=== PATIENT | female | born 1950 | race Caucasian/White ===

== ENCOUNTER 2016-10-26 09:09 | Emergency (ER) | payer OTHER ==
[2016-10-26] MEDS ORDERED: ONDANSETRON 4 MG/2 ML VIAL IVP STA ×2 (09:28→13:20)
[2016-10-26] MEDS ORDERED: HYDROmorphone 1 MG/ML SYRINGE IVP STA ×2 (09:28)
--- NOTE | 2016-10-26 09:33 | ED Physician Documentation ---
History of Present Illness - Stated complaint Stated Complaint: ABD PX/VOMITING - Chief complaint Chief Complaint: Abd Pain - Additonal information Additional information: hx from pt 65f no prior abd surgery healthy except DI and lipids visiting [place] from [place] ate a large dinner last night - lao dip, nothing bad, no raw food, sister ate same and is fine approx 4 AM developed severe upper abd pain described as "rolling waves" radiating to the back and chest and NV, no diarrhea and shaking chills Review of Systems Constitutional: reports: Chills. denies: Fever Throat: denies: Sore throat Cardiac: denies: Chest pain / pressure Respiratory: denies: Dyspnea GI: reports: Abdominal Pain, Nausea, Vomiting. denies: Diarrhea : denies: Dysuria Musculoskeletal: reports: Back pain. denies: Neck pain Neurologic: denies: Generalized weakness Endocrine: denies: Easy bruising / bleeding Immunocompromised: denies: Immunocompromised PD PAST MEDICAL HISTORY - Present Medications Home Medications: Ambulatory Orders Medication Instructions Recorded Confirmed Dicyclomine [Bentyl] 10 mg PO Q8H PRN #20 capsule 10/26/16 Ondansetron Odt [Zofran] 4 mg TL Q6H PRN #10 tablet 10/26/16 - Allergies Allergies/Adverse Reactions: Allergies Allergy/AdvReac Type Severity Reaction Status Date / Time No Known Drug Allergies Allergy Verified 10/26/16 09:19 PD ED PE NORMAL - Vitals Vital signs reviewed: Yes - General General: Alert and oriented X 3 - HEENT HEENT: Other (resltess uncomfortable) - Neck Neck: Supple, no meningeal sign - Cardiac Cardiac: RRR - Respiratory Respiratory: No respiratory distress, Clear bilaterally - Abdomen Abdomen: Normal bowel sounds, Other (TTP epigastric and RUQ with guarding no rebound, no palpable pulsatile mass, res of abd TTP but less so and non peritoneal, no inguinal hernia) - Derm Derm: Normal color - Extremities Extremities: No deformity - Neuro Neuro: Alert and oriented X 3 Results - Vitals Vitals: Vital Signs - 24 hr 10/26/16 10/26/16 10/26/16 09:17 10:05 12:50 Temperature 36.5 C Heart Rate 51 L 52 L 63 Respiratory 16 15 16 Rate Blood Pressure 204/86 H 179/85 H 174/77 H O2 Saturation 99 95 95 10/26/16 10/26/16 10/26/16 13:58 15:40 16:30 Temperature 36.3 C L Heart Rate 68 61 64 Respiratory 16 16 16 Rate Blood Pressure 191/84 H 176/84 H 180/82 H O2 Saturation 95 100 98 Oxygen O2 Source Room air - EKG (time done) 0924 Rate: Rate (enter#) (54) Rhythm: NSR [place]: Normal Intervals: Normal CA Ischemia: Normal ST segments - Labs Labs: Laboratory Tests 10/26/16 10/26/16 10/26/16 09:43 09:43 11:30 WBC 6.2 RBC 4.25 Hgb 13.5 Hct 39.0 MCV 91.8 MCH 31.8 H MCHC 34.6 RDW 12.8 Plt Count 156 MPV 6.8 L Neut # 5.0 Lymph # 0.8 L Loving # 0.3 Eos # 0.0 Baso # 0.0 Absolute Nucleated RBC 0.00 Nucleated RBCs 0.0 Sodium 135 Potassium 3.6 Chloride 101 Carbon Dioxide 23 Anion Gap 11.0 BUN 16 Creatinine 0.6 Estimated GFR (MDRD) 100 Glucose 140 H Calcium 8.8 Total Bilirubin 0.5 AST 28 ALT 32 Alkaline Phosphatase 48 Total Protein 7.1 Albumin 4.5 Globulin 2.6 Albumin/Globulin Ratio 1.7 Lipase 37 Urine Color YELLOW Urine Clarity CLEAR Urine pH 7.0 Ur Specific [place] 1.015 Urine Protein NEGATIVE Urine Glucose (UA) NEGATIVE Urine Ketones NEGATIVE Urine Occult Blood MODERATE H Urine Nitrite NEGATIVE Urine Bilirubin NEGATIVE Urine Urobilinogen 0.2 (NORMAL) Ur Leukocyte Esterase NEGATIVE Urine RBC 11-25 H Urine WBC 0-3 Ur Squamous Epith Cells RARE Squamous Urine Bacteria Rare Ur Microscopic Review INDICATED Urine Culture Comments NOT INDICATED - Rads (name of study) CT abd pelvis Radiology: See rad report (no AAA, no acute process per rad read, per my read possible GB neck stones, per rad also renal cyst and rec renal sono, will sono GB and kindey) abd sono Radiology: See rad report (nl GB no stones, nl ducts, nl aorta IVC R kidney, L kidney cyst no mass) angio abd pelvis Radiology: See rad report (no aneurysm disscetion or mesenteirc ischemia, diverticulosis no -itis, hepatic steatosis, cholelithiasis likely (I called and personally spoke to rads to explain that was my initial concern but sono was neg and so he advises that cosnidering sono, this finding is likely not gallstones and more likely abd calcifications), exophytic density for L kidney rec sono (already done), distended bladder) PD MEDICAL DECISION MAKING - ED course ED course: initial suspicion was GB disease or AAA but pt had sono, CT and angio - no gallstones, no kidney stones, no AAA or dissection, no bowel perf obst infection,, no pancreatitis etc etiology unclear but feel surgical and infectious causes have been ruled out will focus on sx control updated PMD who had called ahead about the pt and explained all to pt as well no relief with 0.5 dilaudid but dropped her sats bvriefly, good relief with ofirmev but it wore off, then good relief again with toradol and bentyl Departure - Departure Disposition: Home, Self Care Clinical Impression: Abdominal pain Condition: Good Instructions: Abdominal Pain Prescriptions: Dicyclomine [Bentyl] 10 mg PO Q8H PRN #20 capsule PRN Reason: stomach cramps Ondansetron Odt [Zofran] 4 mg TL Q6H PRN #10 tablet PRN Reason: Nausea / Vomiting Comments: All of the tests today came back fine. The urine showed no infection. There was a small amount of blood in the uirne ( but the CT did not show a kidney stone) The blood work including kidney liver and pancreas function was fine. The ultrasound did not show any gallstones The CT scan did not show any gallstones or kidney stones, no pancreatitis, no aneurysm or tear of your aorta, no bowel infection/perforation/obstruction/ ischemia, no internal bleeding or free fluid I am not sure what is causing the pain But given the extensive and reassuring workup, I do not think you need surgery or admission or antibiotics. I think it is safe for you to go home and to get any further work up as an outpatient It is very possible that over time, new or changing symptoms may develop that lead to a diagnosis not presently apparent. That is why close follow up with your PMD for a recheck is very important I would suggest you and your PMD consider a test called a HIDA scan to evaluate the gallbladder function - that test is not available tonight through the ER Recommend a low fat diet. You can try a medication called bentyl to ease the pains and a medication called zofran for the vomiting I do not recommend any strong pain killers because I do not want to mask changing or worsening symptoms Please have your PMD recheck your blood pressure as well - it was high today Discharge Date/Time: 10/26/16 16:45
[2016-10-26] MEDS ORDERED: HYDROmorphone 1 MG/ML SYRINGE ONE (09:40)
[2016-10-26] MEDS ORDERED: ONDANSETRON 4 MG/2 ML VIAL ONE ×2 (09:40→13:20)
[2016-10-26 09:49] LABS: BASOPHILS % (AUTO) 0.4 %; EOSINOPHILS % (AUTO) 0.2 %; HGB - HEMOGLOBIN 13.5 g/dL (12.0-16.0); LYMPHOCYTES # (AUTO) 0.8 10^3/uL (1.5-3.5); LYMPHOCYTES % (AUTO) 13.4 %; MEAN CORPUSCULAR HEMOGLOBIN 31.8 pg (27.0-31.0); MEAN CORPUSCULAR HGB CONC 34.6 g/dL (32.0-36.0); MEAN CORPUSCULAR VOLUME 91.8 fL (81.0-99.0); MEAN PLATELET VOLUME 6.8 fL (7.9-10.8); MONOCYTES # (AUTO) 0.3 10^3/uL (0.0-1.0); MONOCYTES % (AUTO) 5.5 %; NEUTROPHILS % (AUTO) 80.5 %; RED BLOOD COUNT 4.25 10^6/uL (4.20-5.40); RED CELL DISTRIBUTION WIDTH 12.8 % (12.0-15.0); UNCORRECTED WHITE BLOOD COUNT 6.2 x10^3/uL; WHITE BLOOD COUNT 6.2 x10^3/uL (4.8-10.8)
[2016-10-26 10:07] LABS: ALBUMIN/GLOBULIN RATIO 1.7 (1.0-2.2); BILIRUBIN,TOTAL 0.5 mg/dL (0.2-1.0); CALCIUM 8.8 mg/dL (8.5-10.3); CREATININE 0.6 mg/dL (0.4-1.0); POTASSIUM 3.6 mmol/L (3.5-5.0); TOTAL PROTEIN 7.1 g/dL (6.7-8.2)
--- NOTE | 2016-10-26 10:54 | CT Preliminary Report ---
Exam: CT Abdomen/Pelvis W/O IMPRESSION: 1. No definite acute abnormality of the abdomen or pelvis, by noncontrast imaging. 2. Small nonspecific hepatic hypodensities. 3. Colonic diverticulosis without kasia diverticulitis. 4. 1.9 cm left renal lesion. Hyperdense cyst and soft tissue mass are within the differential diagnos is. Further evaluation by renal ultrasound is recommended. [facility] SITE ID: [id number]
--- NOTE | 2016-10-26 10:57 | CT Report ---
EXAM: CT ABDOMEN AND PELVIS (CT KUB) EXAM DATE: 10/26/2016 10:31 AM. CLINICAL HISTORY: Severe upper abd pain rad to back. Central and lower abdominal pain. COMPARISONS: None. TECHNIQUE: Routine axial helical CT imaging was performed through the abdomen and pelvis without IV c ontrast. Reconstructions: Coronal and sagittal. In accordance with CT protocol optimization, one or more of the following dose reduction techniques w ere utilized for this exam: automated exposure control, adjustment of mA and/or KV based on patient s ize, or use of iterative reconstructive technique. FINDINGS: Lung Bases: Unremarkable. Right Kidney/Ureter: No stones, hydronephrosis, or hydroureter. No perinephric fat stranding. Left Kidney/Ureter: No stones, hydronephrosis, hydroureter or perinephric stranding. Isodense approxi mately 1.0 x 1.6 x 1.9 cm lobulated exophytic lesion at the superior lateral margin of the kidney cou ld represent a hyperdense cyst or a soft tissue mass/neoplasm. Other Solid Organs: There are at least 3 small left hepatic lobe hypodensities measuring 7 mm and les s. These are nonspecific on this exam but have a high likelihood of representing incidental finding s uch as cysts. Otherwise, noncontrast images of the solid organs are grossly unremarkable. Gallbladder/Bile Ducts: Unremarkable. Peritoneal Cavity: No free fluid, free air or kasia adenopathy. Normal appendix. Colonic diverticulos is without kasia diverticulitis. Pelvic Organs: Moderate bladder distention without kasia mass or stones. The visualized pelvic organs are grossly normal. Vasculature: Atherosclerotic calcifications, without aneurysm. Other: Degenerative disease of the spine, greatest at the L5-S1 disk space level. IMPRESSION: 1. No definite acute abnormality of the abdomen or pelvis, by noncontrast imaging. 2. Small nonspecific hepatic hypodensities. 3. Colonic diverticulosis without kasia diverticulitis. 4. 1.9 cm left renal lesion. Hyperdense cyst and soft tissue mass are within the differential diagnos is. Further evaluation by renal ultrasound is recommended. [facility] Referring Provider Line: [phone] SITE ID: [id number]
[2016-10-26] MEDS ORDERED: ACETAMINOPHEN 1,000 MG/100 ML 100 ML IV STA (11:29)
[2016-10-26 11:47] LABS: BILIRUBIN,URINE NEGATIVE (NEGATIVE)
[2016-10-26 11:53] LABS: UA w/ MICROSCOPIC CHARGE YES; UR CULTURE IF IND NOT INDICATED; WBC,URINE 0-3 /HPF (0-5)
[2016-10-26] MEDS ORDERED: ACETAMINOPHEN 1,000 MG/100 ML 100 ML IV ONE (12:05)
[2016-10-26] MEDS ORDERED: IOPAMIDOL-300 100 ML VIAL IVP ONE (14:02)
--- NOTE | 2016-10-26 14:36 | CT Preliminary Report ---
Exam: CT Abdomen/Pelvis Angio IMPRESSION: 1. Negative CTA of the abdomen and pelvis. No evidence of aneurysm or dissection. 2. There is colonic diverticulosis without evidence of diverticulitis. 3. There is hepatic steatosis. 4. There is likely cholelithiasis. No evidence of bile duct dilatation. 5. There is a 1.2 cm exophytic hypodensity emanating from the lateral cortex of the left kidney. Atte nuation characteristics of this focus are higher than that of simple fluid. Differential consideratio ns include complex cyst or mass. Nonemergent renal ultrasound follow-up is recommended as indicated. 6. The urinary bladder is distended. [facility] SITE ID: [id number]
--- NOTE | 2016-10-26 14:39 | CT Report ---
EXAM: CT ANGIOGRAM ABDOMEN AND PELVIS WITH CONTRAST EXAM DATE: 10/26/2016 01:44 PM. CLINICAL HISTORY: Severe abd pain, hematuria. COMPARISONS: None. TECHNIQUE: Routine helical CT angiogram imaging was performed through the abdomen and pelvis in the a rterial phase. IV contrast: 100 cc Isovue-300. Enteric contrast: No. Reconstructions: Coronal, sagitt al, and 3D MIP reconstructions. In accordance with CT protocol optimization, one or more of the following dose reduction techniques w ere utilized for this exam: automated exposure control, adjustment of mA and/or KV based on patient s ize, or use of iterative reconstructive technique. FINDINGS: Vasculature: No aneurysm, dissection, or significant atherosclerotic disease of the abdominal aorta a nd iliac arteries. The visualized mesenteric and solid organ vascular structures are also within norm al limits. Lung Bases: Normal. Abdominal Solid Organs: There is a prior pseudocyst. Note suspicious hepatic lesions are seen. There is likely cholelithiasis. No evidence of bile duct dilatation. The spleen and pancreas are unremarkab le. The adrenal glands are within normal limits. There is a 1.2 cm exophytic hypodensity emanating fr om the lateral cortex of the left kidney (image 86 series 3). Attenuation characteristics of this foc us are higher than that of simple fluid. Peritoneal Cavity: There is colonic diverticulosis without evidence of diverticulitis. No dilated or thick-walled bowel is seen. No enlarged mesenteric or retroperitoneal lymph nodes. No intraperitoneal free air or free fluid. There is a moderate-sized duodenal diverticulum without evidence of associat ed inflammation. The appendix is normal. Pelvic Organs: Urinary bladder is distended. Uterus and adnexa demonstrate no significant abnormaliti es. Bones: No significant abnormality. Other: None. IMPRESSION: 1. Negative CTA of the abdomen and pelvis. No evidence of aneurysm or dissection. 2. There is colonic diverticulosis without evidence of diverticulitis. 3. There is hepatic steatosis. 4. There is likely cholelithiasis. No evidence of bile duct dilatation. 5. There is a 1.2 cm exophytic hypodensity emanating from the lateral cortex of the left kidney. Atte nuation characteristics of this focus are higher than that of simple fluid. Differential consideratio ns include complex cyst or mass. Nonemergent renal ultrasound follow-up is recommended as indicated. 6. The urinary bladder is distended. [facility] Referring Provider Line: [phone] SITE ID: [id number]
--- NOTE | 2016-10-26 14:39 | Ultrasound Report ---
COMPLETE ABDOMINAL ULTRASOUND: 10/26/2016 CLINICAL INDICATION: Abdominal pain. TECHNIQUE: Real-time scanning was performed with client care representative static images obtained. FINDINGS: The liver measures 15.9 cm. Tiny cysts are noted in the left lobe. No solid hepatic lesion or intrahepatic biliary dilatation is present. Echogenicity is mildly increased, suspicious for fatt y infiltration. The common bile duct measures 5 mm. The gallbladder is unremarkable. The pancreas is normal. The right kidney measures 11.5 cm, and is unremarkable. The left kidney measures 11.3 cm, and demonstrates an 1.8 cm cyst arising from the upper pole cortex, accounting for the CT abnormality, a s well as a peripelvic cyst measuring 1.1 cm. No hydronephrosis or solid renal lesion is present. The spleen measures 9.2 cm, and demonstrates normal echotexture. The abdominal aorta appears unremarkabl e. The inferior vena cava appears unremarkable. No free fluid is present. IMPRESSION: ECHOGENIC LIVER, LIKELY REPRESENTING FATTY INFILTRATION. NO EVIDENCE OF CHOLELITHIASIS O R BILIARY OBSTRUCTION. CORTICAL CYST ACCOUNTING FOR THE CT ABNORMALITY IN THE UPPER POLE OF THE LEFT KIDNEY. NO SOLID RENAL LESION. JOB #: [id number] EXT JOB #:[id number]
[2016-10-26] MEDS ORDERED: KETOROLAC 60 MG/2 ML VIAL IVP STA (15:14)
[2016-10-26] MEDS ORDERED: DICYCLOMINE 10 MG CAPSULE PO STA (15:14)
[2016-10-26] MEDS ORDERED: KETOROLAC 30 MG/ML VIAL ONE (15:18)
[2016-10-26] MEDS ORDERED: DICYCLOMINE 10 MG CAPSULE PO ONE (15:18)
[2016-10-26 18:13] VITALS: BP 180/82
== END 2016-10-26 16:45 | disposition home or self-care (01) ==
LOC: ED 09:09
DX: R10.9 Unspecified abdominal pain (principal)
CPT/HCPCS: 36415; 74174; 74176; 76700; 80053; 81001; 83690; 85025; 93005; 96374; 96375; 99284; A9270; J0131; J1170; Q9967; 81003; 87086